=== PATIENT | female | born 1970 | race Caucasian/White ===

== ENCOUNTER 2019-12-29 12:04 | Emergency (ER) | payer SELFPAY ==
[2019-12-29 12:29] VITALS: BP 149/64; PULSE 85
[2019-12-29] MEDS ORDERED: Triamcinolone Acetonide 40 MG/ML 1 ML SDV IM ONE (14:37)
--- NOTE | 2019-12-29 14:43 | EDM.PDOC ---
ED HPI GENERAL MEDICAL PROBLEM - General Chief Complaint: Lower Extremity Injury/Pain Stated Complaint: LT KNEE PAIN Time Seen by Provider: 12/29/19 14:38 Source of Information: Reports: Patient History Limitations: Reports: No Limitations - History of Present Illness INITIAL COMMENTS - FREE TEXT/NARRATIVE: pt had recent surgery on the left shoulder and because of this she feels like she is a little off balance when she reaches for things and what not. She has not fallen. She is having pain in her left knee and up into the thigh. There is slight swelling on the anterior portion of the left knee. Onset: Today Duration: Hour(s): Location: Reports: Lower Extremity, Left Associated Symptoms: Reports: No Other Symptoms Left Knee Pain Score (Numeric/FACES): 5 - Related Data Allergies Allergy/AdvReac Type Severity Reaction Status Date / Time No Known Allergies Allergy Verified 05/09/15 21:05 Home Meds: Home Meds NK [No Known Home Meds] 12/29/19 [History] Past Medical History HEENT History: Reports: Impaired Vision Musculoskeletal History: Reports: Other (See Below) Other Musculoskeletal History: shoulder issues Neurological History: Reports: Seizure Psychiatric History: Reports: Anxiety Hematologic History: Reports: B12 Deficiency - Infectious Disease History Infectious Disease History: Reports: Chicken Pox Social & Family History - Tobacco Use Smoking Status *Q: Never Smoker - Caffeine Use Caffeine Use: Reports: Coffee, Soda, Tea - Recreational Drug Use Recreational Drug Use: No Review of Systems - Review of Systems Review Of Systems: See Below Constitutional: Reports: No Symptoms Eyes: Reports: No Symptoms Ears: Reports: No Symptoms Nose: Reports: No Symptoms Mouth/Throat: Reports: No Symptoms Respiratory: Reports: No Symptoms Cardiovascular: Reports: No Symptoms GI/Abdominal: Reports: No Symptoms Genitourinary: Reports: No Symptoms Musculoskeletal: Reports: Other (pain in the left knee and up into the thigh, ) Skin: Reports: No Symptoms ED EXAM, GENERAL - Physical Exam Exam: See Below Free Text/Narrative:: pt arrived having pain into the left knee into the thigh. There is no known injury. Exam Limited By: No Limitations General Appearance: Alert, Anxious, Moderate Distress Ears: Normal TMs Extremities: Other (left knee is painful with motion. It is tendr to palpate on the medial aspect. There is slight swelling just below the knee. She has tenderness to palpate in the calf. ) Course - Vital Signs Last Recorded V/S: Last Vital Signs Temp 35.9 C L 12/29/19 12:33 Pulse 85 12/29/19 12:33 Resp 16 12/29/19 12:33 BP 149/64 H 12/29/19 12:33 Pulse Ox 99 12/29/19 12:33 - Orders/Labs/Meds Meds: Medications Discontinued Medications Generic Name Dose Route Start Last Admin Trade Name Kris PRN Reason Stop Dose Admin Triamcinolone Acetonide 60 mg 12/29/19 14:37 12/29/19 14:50 Kenalog-40 IM 12/29/19 14:38 60 mg ASDIRECTED ONE Administration - Re-Assessments/Exams Free Text/Narrative Re-Assessment/Exam: 12/29/19 14:43 xray of the knee some mild degenerative changes, Us of the leg is neg. Departure - Departure Time of Disposition: 14:44 Disposition: Home, Self-Care 01 Condition: Fair Clinical Impression: Inflammation of joint of knee - Discharge Information Instructions: Acute Knee Pain, Adult Referrals: Víctor Law MD [Primary Care Provider] - Forms: ED Department Discharge Care Plan Goals: minimal wt bearing, moist warm packs to the knee, use the naproxen 1500 mg daily as already ordered for the pt, pt was given an injection of kenalog prior to departure. Sepsis Event Note - Evaluation Sepsis Screening Result: No Definite Risk - Focused Exam Date Exam was Performed: 12/31/19 Time Exam was Performed: 07:14
--- NOTE | 2019-12-30 10:28 | CR ---
Knee Min 4V Lt, CLINICAL HISTORY: Left knee pain FINDINGS: No acute fracture or dislocation is noted. There are no osseous lesions. Articular surfaces are smooth. Impression: Negative VL Duplex Lwr Ext Veins Ltd Lt Knee Min 4V Lt, VL Duplex Lwr Ext Veins Ltd Lt HISTORY: Pain FINDINGS: The deep veins of the left lower extremity demonstrate normal augmentation and compressibility. No evidence for deep venous thrombosis. IMPRESSION: Normal lower extremity venous Doppler study.
== END 2019-12-29 15:10 | disposition home or self-care (01) ==
LOC: JP.ED 12:04
DX: M17.12 Unilateral primary osteoarthritis, left knee (principal)
CPT/HCPCS: 73564; 93971; 96372; 99284; J3301; 99283